=== PATIENT | male | born 1980 | race African-American/Black ===

== ENCOUNTER → 2016-12-20 | Outpatient (REF) | payer OTHER ==
[2016-12-20 15:35] LABS: IMMOTILITY 52 %; NON PROGRESSIVE MOTILITY (c) 9 %; PROGRESSIVE MOTILITY (a) 39 % (>=32); TOTAL MOTILITY 48 % (>=40)
[2016-12-20 15:38] LABS: % NORMAL FORMS 10 % (>=4); SPERM# 310.4 M/Ejac (33-46); TOTAL FUNCTIONAL 27.3 M/Ejac.; TOTAL PROGRESSIVE SPERM 120.1 M/Ejac.
== END ==
LOC: M LAB REF 15:17
PROVIDERS: ATTEND Physician Assistant Medical
DX: Z31.41 Encounter for fertility testing (principal)

== ENCOUNTER 2017-09-17 01:51 | Emergency (ER) | payer OTHER ==
[~2017-09-17] VITALS: Ht 172.7 cm; Wt 77.3 kg
[2017-09-17 01:51] VITALS: BP 123/76
[2017-09-17] MEDS ORDERED: LUNE2TAB23 PO (02:15)
[2017-09-17] MEDS ORDERED: TIZA2TA GT (02:15)
[2017-09-17] MEDS ORDERED: MELO15TA4 PO (02:15)
--- NOTE | 2017-09-17 10:53 | ECGEPIP ---
Stationary ECG Study [facility] - ED Test Date: 2017-09-17 Pat Name: YASMINE THAO Department: Room: - Gender: M Title Clerk: : 1980 Requested By: NOAH MAGDALENO Order Number: [id number] Reading MD: Sybil Watt Measurements Intervals [place] Rate: 53 P: 72 OR: 159 QRS: 74 QRSD: 93 T: 52 QT: 393 QTc: 371 Interpretive Statements SINUS BRADYCARDIA VOLTAGE CRITERIA FOR LVH PROBABLE EARLY REPOLARIZATION - CLINICAL CORRELATION EXCLUDE ISCHEMIA NO PRIOR FOR COMPARISON Electronically Signed On 09-17-2017 10:53:30 EST by Sybil Watt
== END 2017-09-17 05:07 | disposition left against medical advice (07) ==
LOC: M ED 01:51
DX: R07.9 Chest pain, unspecified (principal); Z53.21 Procedure and treatment not carried out due to patient leaving prior to being seen by health care provider

== ENCOUNTER 2017-12-16 04:30 | Emergency (ER) | payer OTHER ==
[2017-12-16 05:52] LABS: BASO % 0.6 % (0.0-1.0); EOS # 0.1 10^3/uL (0.0-0.50); EOS % 1.9 % (0.0-3.0); HEMATOCRIT 45.2 % (42.0-52.0); HEMOGLOBIN 14.8 g/dl (14.0-18.0); IMMATURE GRANULOCYTE % 0.4 % (0-3.0); LYMPH # 1.7 10^3/uL (1.5-4.5); LYMPH % 32.3 % (24.0-44.0); MEAN CORPUSCULAR HEMOGLOBIN 28.4 pg (27.0-33.0); MEAN CORPUSCULAR HGB CONC 32.7 g/dl (32.0-36.5); MEAN CORPUSCULAR VOLUME 86.8 fl (80.0-96.0); MONO # 0.5 10^3/uL (0.0-0.8); MONO % 10.3 % (0.0-5.0); NEUTROPHILS # 2.8 10^3/uL (1.8-7.7); NEUTROPHILS % 54.5 % (36.0-66.0); PLATELET COUNT, AUTOMATED 308 10^3/uL (150-450); RED BLOOD COUNT 5.21 10^6/uL (4.30-6.10); RED CELL DISTRIBUTION WIDTH 11.5 % (11.5-14.5); WHITE BLOOD COUNT 5.1 10^3/uL (4.0-10.0)
[2017-12-16 06:05] LABS: ANION GAP 7 MEQ/L (8-16); BLOOD UREA NITROGEN 14 MG/DL (7-18); CALCIUM LEVEL 8.8 MG/DL (8.5-10.1); CARBON DIOXIDE LEVEL 28 MEQ/L (21-32); CHLORIDE LEVEL 107 MEQ/L (98-107); CPK CREATINE PHOSPHOKINASE 328 U/L (39-308); CREATININE FOR GFR 1.19 MG/DL (0.70-1.30); GLOMERULAR FILTRATION RATE > 60.0 (>60); GLUCOSE, FASTING 93 MG/DL (70-100); POTASSIUM SERUM 4.2 MEQ/L (3.5-5.1); SODIUM LEVEL 142 MEQ/L (136-145); TROPONIN I < 0.02 NG/ML (< 0.10)
[2017-12-16] MEDS: KETOROLAC 30 MG/ML VIAL (J1885) IV (06:30)
[2017-12-16] MEDS ORDERED: ACETAMINOPHEN 325 MG TAB PO (07:00)
== END 2017-12-16 08:20 | disposition home or self-care (01) ==
LOC: M ED 04:30
DX: R09.1 Pleurisy (principal); R94.31 Abnormal electrocardiogram [ECG] [EKG]; G47.00 Insomnia, unspecified; Z79.899 Other long term (current) drug therapy
CPT/HCPCS: J1885

== ENCOUNTER 2018-06-28 11:50 | Emergency (ER) | payer OTHER ==
[2018-06-28 12:14] LABS: BASO % 0.4 % (0.0-1.0); EOS % 0.7 % (0.0-3.0); HEMATOCRIT 44.5 % (42.0-52.0); HEMOGLOBIN 14.6 g/dl (13.5-17.5); IMMATURE GRANULOCYTE % 0.2 % (0-3.0); LYMPH # 1.8 10^3/uL (1.5-4.5); LYMPH % 32.7 % (24.0-44.0); MEAN CORPUSCULAR HEMOGLOBIN 28.2 pg (27.0-33.0); MEAN CORPUSCULAR HGB CONC 32.8 g/dl (32.0-36.5); MEAN CORPUSCULAR VOLUME 85.9 fl (80.0-96.0); MONO # 0.5 10^3/uL (0.0-0.8); MONO % 9.3 % (0.0-5.0); NEUTROPHILS # 3.2 10^3/uL (1.8-7.7); NEUTROPHILS % 56.7 % (36.0-66.0); PLATELET COUNT, AUTOMATED 342 10^3/uL (150-450); RED BLOOD COUNT 5.18 10^6/uL (4.30-6.10); RED CELL DISTRIBUTION WIDTH 11.5 % (11.5-14.5); WHITE BLOOD COUNT 5.6 10^3/uL (4.0-10.0)
[2018-06-28 13:25] LABS: ANION GAP 6 MEQ/L (8-16); BLOOD UREA NITROGEN 15 MG/DL (7-18); CALCIUM LEVEL 8.7 MG/DL (8.5-10.1); CARBON DIOXIDE LEVEL 27 MEQ/L (21-32); CHLORIDE LEVEL 108 MEQ/L (98-107); CPK CREATINE PHOSPHOKINASE 336 U/L (39-308); CREATININE FOR GFR 1.21 MG/DL (0.70-1.30); GLOMERULAR FILTRATION RATE > 60.0 (>60); GLUCOSE, FASTING 82 MG/DL (70-100); MB/CK RELATIVE INDEX 0.45 (< OR =4); POTASSIUM SERUM 4.1 MEQ/L (3.5-5.1); SODIUM LEVEL 141 MEQ/L (136-145); TROPONIN I < 0.02 NG/ML (< 0.10)
[2018-06-28] MEDS ORDERED: ISOVUE-370 76% 100ML VIAL (Q9967) As Ordered (14:00)
[2018-06-28 14:09] LABS: ALBUMIN 4.1 GM/DL (3.2-5.2); ALBUMIN/GLOBULIN RATIO 1.41 (1.00-1.93); ALKALINE PHOSPHATASE 67 U/L (45-117); ALT/SGPT 20 U/L (12-78); AST/SGOT 17 U/L (7-37); BILIRUBIN,DIRECT 0.2 MG/DL (0.0-0.2); BILIRUBIN,TOTAL 0.4 MG/DL (0.2-1.0); LIPASE 137 U/L (73-393)
[2018-06-28] MEDS: NITROGLYCERIN 0.4 MG SUBL TABLET SL (14:09)
[2018-06-28] MEDS: ASPIRIN 81 MG CHEW TABLET PO (14:10)
[2018-06-28] MEDS: NS 500 ML IV (17:20)
[2018-06-28 18:46] LABS: CPK CREATINE PHOSPHOKINASE 359 U/L (39-308); MB/CK RELATIVE INDEX 0.39 (< OR =4); TROPONIN I < 0.02 NG/ML (< 0.10)
== END 2018-06-28 20:29 | disposition home or self-care (01) ==
LOC: M ED 11:50
DX: R07.9 Chest pain, unspecified (principal); R00.1 Bradycardia, unspecified; M54.9 Dorsalgia, unspecified; M54.2 Cervicalgia; Z79.899 Other long term (current) drug therapy
CPT/HCPCS: Q9967